=== PATIENT | male | born 1960 | race Two or more races ===

== ENCOUNTER 2018-09-10 10:00 | Emergency (ER) | payer BC, MEDICAID ==
[~2018-09-10] VITALS: Ht 167.6 cm; Wt 98.9 kg
[~2018-09-10 10:00] MED LIST: ALBUAER3 IN; FURO20TA3 PO; GLIM2TAB33 PO; LISI-646 PO; MECL1TAB42 PO; METF-370 PO; NAP500T PO; OXYB15TA12 PO; SIMV-8 PO; SULF400T11 PO; TAMS0.4C36 PO; TRAZ50TA2 PO
[2018-09-10 10:25] VITALS: BP 148/73
== END 2018-09-10 11:04 | disposition home or self-care (01) ==
LOC: ER 10:00
DX: B35.3 Tinea pedis (principal); B35.4 Tinea corporis; E11.9 Type 2 diabetes mellitus without complications; E78.5 Hyperlipidemia, unspecified; I10 Essential (primary) hypertension; R42 Dizziness and giddiness; Z79.899 Other long term (current) drug therapy
CPT/HCPCS: 82962

== ENCOUNTER 2018-09-25 11:19 | Emergency (ER) | payer BC, MEDICAID ==
[~2018-09-25] VITALS: Ht 167.6 cm; Wt 99.8 kg
[2018-09-25 13:24] VITALS: BP 112/67
== END 2018-09-25 14:32 | disposition home or self-care (01) ==
LOC: ER 11:27
DX: B35.3 Tinea pedis (principal); B35.4 Tinea corporis; L01.00 Impetigo, unspecified; J45.909 Unspecified asthma, uncomplicated; E11.9 Type 2 diabetes mellitus without complications; E78.5 Hyperlipidemia, unspecified; I10 Essential (primary) hypertension; Z76.0 Encounter for issue of repeat prescription
CPT/HCPCS: 82962

== ENCOUNTER 2023-02-23 09:18 | Emergency (ER) | payer OTHER, MEDICAID ==
[~2023-02-23] VITALS: Ht 167.6 cm; Wt 97.2 kg
[~2023-02-23 09:18] MED LIST changes: -LISI-646 PO; +LISI20TA56 PO; -SIMV-8 PO; +SIMV20TA20 PO; +TRAZ-227 PO; -TRAZ50TA2 PO
[2023-02-23 09:30] VITALS: BP 152/83; PULSE 102; RESP 18; TEMP 97.3; O2SAT 98
[2023-02-23] MEDS ORDERED: HYDR25CA PO (10:23)
[2023-02-23] MEDS ORDERED: TRIA0.02 TOP (10:23)
[2023-02-23] MEDS ORDERED: CEPH500C PO (10:23)
[2023-02-23] MEDS ORDERED: cefTRIAXone SOD 1,000 MG VL IM ONE (10:30)
== END 2023-02-23 11:06 | disposition home or self-care (01) ==
LOC: ER 09:18
DX: L20.9 Atopic dermatitis, unspecified (principal); I10 Essential (primary) hypertension; E11.9 Type 2 diabetes mellitus without complications; E78.5 Hyperlipidemia, unspecified; J45.909 Unspecified asthma, uncomplicated; Z79.899 Other long term (current) drug therapy
CPT/HCPCS: 96372; 99283; J0696

== ENCOUNTER 2024-02-22 09:18 | Emergency (ER) | payer OTHER, MEDICAID ==
[~2024-02-22] VITALS: Ht 167.6 cm; Wt 95.6 kg
[~2024-02-22 09:18] MED LIST changes: +CEPH500C PO; +HYDR25CA PO; -TAMS0.4C36 PO; +TAMS0.4C39 PO; +TRIA0.02 TOP
[2024-02-22 10:28] VITALS: BP 136/73; PULSE 114; RESP 16; TEMP 98.5; O2SAT 100
[2024-02-22] MEDS ORDERED: KETO2CRE4 TOP (10:33)
--- NOTE | 2024-02-22 10:36 | ED.PDOC ---
History of Present Illness(SKN HPI Comments A 63 YEAR OLD MALE PRESENTS TO THE ED WITH COMPLAINT OF RASH. PATIENT REPORTS THAT HE HAS BEEN EXPERIENCING A RASH TO THE BILATERAL INNER THIGHS NEAR THE GROIN REGION FOR THE PAST 4 WEEKS WITH ITCHINESS AND WETNESS DUE TO APPLYING ANTI-FUNGAL CREAM. PATIENT DENIES PAIN, REDNESS, BLEEDING, OR OTHER COMPLAINTS. NO OTHER SYMPTOMS OR MODIFYING FACTORS AT THIS TIME. Chief Complaint: Rash Time Seen by MD: 10:30 Primary Care Provider: ANTHONY History of Present Illness: Nurses Notes, Medications, Allergies Allergies: Coded Allergies: NO KNOWN ALLERGIES (Unverified , 09/25/18) Home Meds Active Scripts Cephalexin Monohydrate (Cephalexin) 500 Mg Cap, 1 CAP PO QID, #40 CAP Prov:RACHEL DE LA CRUZ 02/22/24 Ketoconazole (Ketoconazole) 2 % Cre, 1 APPLIC TOP BID, #60 GRAMS Prov:RACHEL DE LA CRUZ 02/22/24 Hydroxyzine Pamoate (Vistaril) 25 Mg Cap, 50 MG PO BID, #30 CAP Prov:RACHEL DE LA CRUZ 02/23/23 Triamcinolone Acetonide (Triamcinolone Acetonide) 0.025 % Cre, 1 APPLIC TOP BID, #60 GRAMS Prov:RACHEL DE LA CRUZ 02/23/23 Cephalexin Monohydrate (Cephalexin) 500 Mg Cap, 1 CAP PO QID, #40 CAP Prov:RACHEL DE LA CRUZ 02/23/23 Reported Medications Albuterol Sulfate (VENTOLIN MDI) 90 Mcg Ih, 90 MCG IN 03/29/18 Furosemide (Furosemide) 20 Mg Tab, 20 MG PO DAILY, TAB 03/29/18 Oxybutynin Chloride (Ditropan Xl) 15 Mg Tab, 5 MG PO BID, TAB 03/29/18 Trazodone Hcl (Trazodone Hcl) 50 Mg Tab, 50 MG PO BIDPRN, MG 03/29/18 Tamsulosin Hcl (Tamsulosin Hcl) 0.4 Mg Cap, 0.4 MG PO QPM for 30 Days, MG 03/29/18 Glimepiride (Glimepiride) 2 Mg Tab, 2 MG PO DAILY for 30 Days, MG 03/29/18 Metformin Hydrochloride (Metformin Hcl) 500 Mg Tab, 1000 MG PO BID for 30 Days, MG 03/29/18 Sulfamethoxazole-Trimethoprim (Bactrim) 1 Tab Tab, 1 TAB PO BID, #20 TAB 03/29/18 Meclizine HCl (Meclizine 25) 25 Mg Tab, 25 MG PO BID, TAB 03/29/18 Naproxen (NAPROSYN TABLET) 500 Mg Tb, 1 TAB PO BID, #60 TAB 1 Refill 03/29/18 Lisinopril (Lisinopril) 20 Mg Tab, 1 TAB PO DAILY, #30 TAB 5 Refills 03/29/18 Simvastatin (Simvastatin) 20 Mg Tab, 1 TAB PO QPM, #30 TAB 5 Refills 03/29/18 Information Source: Patient Mode of Arrival: Ambulatory Severity: Mild Timing: Weeks Duration: Since onset Prehospital treatment: None Location: Leg Mechanism: Spontaneous Onset Developed: Pruritus, Rash Object: None Condition of Object: None Retained Foreign Body: Unknown Wound Type: Other (RASH) Immunization Status of Animal: NA Tetanus: Unknown History of: None Associated Signs and Symptoms: Redness, Pain Past Medical History PAST MEDICAL HISTORY: Asthma, DM, High Lipids, HTN Surgical History: Denies all surgeries Family History Family History: No family hx of HTN Social History Smoker: Non-Smoker Alcohol: Rarely Drugs: Denies Drug Use Lives In: Home Constitutional: denies: chills, diaphoresis, fatigue, fever, malaise, sweats, weakness, others EENTM: denies: blurred vision, double vision, ear bleeding, ear discharge, ear drainage, ear pain, ear ringing, eye pain, eye redness, hearing loss, mouth pain, mouth swelling, nasal discharge, nose bleeding, nose congestion, nose pain, photophobia, tearing, throat pain, throat swelling, voice changes, others Respiratory: denies: cough, hemoptysis, orthopnea, SOB at rest, shortness of breath, SOB with excertion, stridor, wheezing, others Cardiovascular: denies: chest pain, dizzy spells, diaphoresis, Dyspnea on exertion, edema, irregular heart beat, left arm pain, lightheadedness, p alpitations, PND, syncope, others Gastrointestinal: denies: abdomen distended, abdominal pain, blood streaked bowels, constipated, diarrhea, dysphagia, difficulty swallowing, hematemesis, melena, nausea, poor appetite, poor fluid intake, rectal bleeding, rectal pain, vomiting, others Genitourinary: denies: burning, dysuria, flank pain, frequency, hematuria, incontinence, penile discharge, penile sore, pain, testicle pain, testicle swelling, urgency, others Neurological: denies: dizziness, fainting, headache, left sided numbness, left sided weakness, numbness, paresthesia, pre-existing deficit, right sided numbness, right sided weakness, seizure, speech problems, tingling, tremors, weakness, others Musculoskeletal: denies: back pain, gout, joint pain, joint swelling, muscle pain, muscle stiffness, neck pain, others Integumetry: reports: rash (ITCHINESS, WETNESS, AND SLIGHT PAIN TO BILAT INNER THIGHS); denies: bruises, change in color, change in hair/nails, dryness, laceration, lesions, lumps, wounds, others Allergic/Immunocompromised: reports: Itching; denies: Difficulty Healing, Frequent Infections, Hives, others Hematologic/Lymphatic: denies: anemia, blood clots, easy bleeding, easy bruising, swollen glands, others Endocrine: denies: excessive hunger, excessive sweating, excessive thirst, excessive urination, flushing, intolerance to cold, intolerance to heat, unexplained weight gain, unexplained weight loss, others Psychiatric: denies: anxiety, bipolar disorder, depression, hopeless, panic disorder, schizophrenia, sleepless, suicidal, others All Other Systems: Reviewed and Negative Physical Exam General Appearance: No Apparent Distress, Normal HEENT: Normal ENT Inspection, PERRL/EOMI, Pharynx Normal Neck: Full Range of Motion, Non-Tender, Normal, Normal Inspection Respiratory: Chest Non-Tender, Lungs Clear, No Accessory Muscle Use, No Respiratory Distress, Normal Breath Sounds Cardiovascular: No Edema, No JVD, No Murmur, No Gallop, Normal Peripheral Pulses, Regular Rate/Rhythm Breast Exam: Deferred Gastrointestinal: No Organomegaly, Non Tender, No Pulsatile Mass, Normal Bowel Sounds, Soft Genitalia: Other (ERYTHEMA PATCH SKIN RASH ON BILATERAL GROIN REGION, NO OPEN WOUND SEEN. +TINEA CRURIS. ) Pelvic: Deferred Rectal: Deferred Extremities: No calf tenderness, Normal capillary refill, Normal inspection, Normal range of motion, Non-tender, No pedal edema Musculoskeletal : Apperance: Normal Neurologic: Alert, key maker II-XII nml as Tested, No Motor Deficits, Normal Affect, Normal Mood, No Sensory Deficits Cerebellar Function: Normal Reflexes: Normal Skin: Dry, Rash (ERYTHEMA SKIN RASH ON GROINS AND INNER THIGH, NO SWELLING AND OPEN WOUND SEEN. ), Warm Peripheral Pulses: 2+ carotid (R), 2+ carotid (L) Lymphatic: No Adenopathy Was a procedure done? Was a procedure done?: No Differential Diagnosis (INTG) Differential Diagnosis: Impetigo, Intertrigo, Tinea, Urticaria X-Ray, Labs, Meds, VS Vital Signs Date Time Temp Pulse Resp B/P (MAP) Pulse Ox O2 Delivery O2 Flow Rate FiO2 02/22/24 10:28 98.5 114 16 136/73 (94) 100 98.5 02/22/24 10:28 114 16 100 Room Air 02/22/24 09:49 98.5 114 16 136/73 (94) 100 Time of 1ST Reevaluation: 10:43 Reevaluation 1ST: Improved Patient Education/Counseling: Diagnosis, Treatment, Need For Follow Up Family Education/Counseling: Diagnosis, Treatment, Need For Follow Up Medical Screening: No EMC Exist At This Time Departure 1 Departure Time of Disposition: 10:43 Impression: Primary Impression: Tinea cruris Disposition: 01 HOME / SELF CARE / HOMELESS Condition: Stable Additional Instructions: FOLLOW-UP WITH PCP IN 1 TO 2 DAYS. TAKE MEDICATIONS PRESCRIBED. RETURN TO ED FOR ANY NEW OR WORSENING SYMPTOMS. e-Prescriptions Cephalexin Monohydrate (Cephalexin) 500 Mg Cap 1 CAP PO QID, #40 CAP Prov: RACHEL DE LA CRUZ 02/22/24 Ketoconazole (Ketoconazole) 2 % Cre 1 APPLIC TOP BID, #60 GRAMS Prov: RACHEL DE LA CRUZ 02/22/24 Discharged With: Self Critical Care Note Critical Care Time?: No Stability Stability form required: No Heart Score Heart Score: Heart Score Response (Comments) Value History N/A 0 EKG N/A 0 Age N/A 0 Risk Factors N/A 0 Troponin N/A 0 Total 0 I personally scribed for RACHEL DE LA CRUZ ([email or web address]) on 02/22/24 at 10:36. Electronically submitted by [place] ([email or web address]). RACHEL DE LA CRUZ Feb 22, 2024 10:36
== END 2024-02-22 10:40 | disposition home or self-care (01) ==
LOC: ER 09:18
DX: B35.6 Tinea cruris (principal); E11.9 Type 2 diabetes mellitus without complications; I10 Essential (primary) hypertension; J45.909 Unspecified asthma, uncomplicated; Z79.84 Long term (current) use of oral hypoglycemic drugs; Z79.899 Other long term (current) drug therapy